=== PATIENT | female | born 1985 | race Caucasian/White ===

== ENCOUNTER 2024-08-31 12:47 | Observation (INO) | payer OTHER, SELFPAY ==
[2024-08-31] VITALS (7 sets, daily range): BP systolic 99–151; BP diastolic 67–96; PULSE 58–72; RESP 14–18; TEMP 36.6–37.2; O2SAT 95–99; BMI 30.5; BMI 36.8
[2024-08-31 13:44] LABS: Basophils % 0.4 %; Eosinophils # 0.1 10^3/uL (0.0-0.8); Eosinophils % 0.7 %; Hematocrit 40.9 % (36-47); Lymphocytes # 1.8 10^3/uL (0.8-4.8); Lymphocytes % 19.9 %; Mean Corpuscular Hemoglobin 30.7 pg (27-33); Mean Platelet Volume 10.2 fL (7.4-10.4); Monocytes # 0.7 10^3/uL (0.2-0.9); Monocytes % 7.3 %; Neutrophils # 6.49 10^3/uL (1.8-7.7); Neutrophils % 71.5 %; Nucleated Red Blood Cells % 0 %; Platelet Count 264 10^3/cmm (157-399); Red Cell Distribution Width 11.8 % (12.1-15.1); White Blood Count 9.08 10^3/uL (3.29-11.43)
[2024-08-31 13:58] LABS: HCG, Serum Qual Negative (Negative)
[2024-08-31 14:04] LABS: Alanine Aminotransferase 7 U/L (0-33); Alkaline Phosphatase 100 U/L (35-105); Anion Gap 14.7 (5-19); Aspartate Amino Transferase 14 U/L (0-32); Blood Urea Nitrogen 11 mg/dL (6-20); Calcium 8.9 mg/dL (8.5-10.5); Carbon Dioxide 23 mmol/L (22-29); Chloride 101 mmol/L (98-107); Globulin 3.5 g/dL (1.3-4.6); Glomerular Filtration Rate 111.9 mL/min (90-130); Glucose 87 mg/dL (65-115); Lipase 20 U/L (13-60); Osmolality Calculated 279 mOsm/kg (285-295); Potassium 3.7 mmol/L (3.5-5.1); Sodium 135 mmol/L (136-145); Total Bilirubin 0.4 mg/dL (0.15-1.2); Total Protein 7.5 g/dL (6.6-8.7)
[2024-08-31 14:32] LABS: Bilirubin Urine Negative (Negative); Blood Urine 2+ (Negative); Glucose Urine UA Negative (Normal); Ketones Urine Trace (Negative); Leukocyte Esterase Urine Negative (Negative); Nitrate Urine Negative (Negative); Protein Urine Trace (Negative); Urine Appearance Clear (CLEAR); Urine Color Yellow (Yellow)
[2024-08-31 14:37] LABS: Add Urine Microscopic? YES; Bacteria Urine Trace /hpf; RBC Urine 21-50 /hpf (0-2); Squamous Epithelial Cell Urine 0-5 /hpf (0-5)
[2024-08-31 14:41] LABS: Add Urine Culture? Yes
--- NOTE | 2024-08-31 14:42 | W.ED.ABDPA2 ---
HPI - Abdominal Pain General: Chief Complaint: Abdominal Pain Stated Complaint: upper abd pain with back pain, n/v/f Time Seen by Provider: 08/31/24 13:56 Source: patient Mode of arrival: ambulatory Limitations: no limitations History of Present Illness: 38-year-old female presents to the ER complaining of abdominal pain. Patient states she has been having intermittent abdominal pain for the past 3 weeks and states this past week it has increased and it is been constant and severe x 1-2 days. She describes the pain as sharp, stabbing, achy and rates it at a 9 out of 10 and located to her RUQ. She states the pain does radiate to the right back. Patient reports she had a subjective fever last night and had taken Tylenol. She reports one episode of non-bloody, non-bilious vomit this morning. She states with abdominal pain she has had increased belching occurring with it. Her pain worsens when she lies flat and it is relieved when she sits up or sleeps in a recliner. Does sometimes feel like pain is worse with eating-other times it seems unaffected. Patient denies chest pain, shortness of breath, palpitations, diarrhea, constipation, headache. MD elicited complaint: abdominal pain Onset (ago): week(s) Pain Consistency: constant (1-2 days) and intermittent Location: RUQ Severity: moderate Pain scale (0-10): 9 Quality: stabbing, aching and sharp Radiation: back (R. lower back) Migration to: no migration Exacerbating factors: eating and other (lying flat) Relieving factors: other (sitting up or in recliner) Associated Symptoms: Reports belching, dyspepsia, fever(s) (subjective), heartburn, nausea and vomiting; Denies change in bowel habits, chills, constipation, diarrhea, dysuria, excessive flatus, hematochezia, hematuria, hematemesis and melena Related Data Date of Last Menstrual Period: 08/22/24 Home Medications ?Medication ?Instructions ?Recorded ?Confirmed desogestrel 0.15 mg-ethinyl 1 tab PO DAILY 08/31/24 08/31/24 estradiol 0.03 mg tablet (Enskyce) Allergies Allergy/AdvReac Type Severity Reaction Status Date / Time No Known Allergies Allergy Verified 08/31/24 13:35 Review of Systems Const: Reports: fever(s) (subjective); Denies: chills, body aches, change in appetite or change in weight Card: Denies: chest pain, palpitations or lightheadedness Resp: Denies: dyspnea, productive cough or non-productive cough GI: Reports: abdominal pain, nausea, vomiting, heartburn and belching; Denies: hematemesis, dysphagia, diarrhea, constipation, excessive flatus, change in bowel habits, hematochezia or melena : Denies: flank pain, difficulty voiding, dysuria, urinary frequency, urinary urgency, urinary hesitancy or hematuria Musc: Reports: back pain (R. lower back pain ); Denies: neck pain, extremity pain, extremity swelling, joint pain, joint swelling, joint redness, joint warmth or joint stiffness Skin/Breast: Denies: rash Neuro: Denies: headache(s), numbness in extremities, weakness in extremities or sensory changes [facility] ED Female Reproductive History: Date of last menstrual period: 08/22/24 Physical Exam Const: COMMON NORMALS: no acute distress, average body habitus, patient oriented x3, no limitations, healthy appearing, alert and well nourished GENERAL APPEARANCE: cooperative ORIENTATION/CONSCIOUSNESS: Yes awake, Yes oriented to person, Yes oriented to place and Yes oriented to time Neck/C-Spine: COMMON NORMALS: no JVD Resp: COMMON NORMALS: normal respiratory effort and clear to auscultation bilaterally EFFORT & INSPECTION: Yes able to speak in complete sentences AUSCULTATION: clear to auscultation bilaterally Cardio: COMMON NORMALS: no JVD, regular rate and regular rhythm RATE: regular rate RHYTHM: regular rhythm GI: COMMON NORMALS: Normal to inspection, nondistended, normoactive bowel sounds present AUSCULTATION: Yes normoactive bowel sounds PALPATION: Yes Tenderness to palpation present (GI) (tender in RUQ and RLQ) Details: RUQ ((+) Harvey sign ) : COMMON NORMALS: Yes no CVA tenderness BLADDER/KIDNEY EXAM: Yes no CVA tenderness Back/Pelvis: COMMON NORMALS: no CVA tenderness Neuro: COMMON NORMALS: patient oriented x3 SENSORIUM/ORIENTATION: Yes alert, Yes oriented to person, Yes oriented to place and Yes oriented to time Course Consultations: Consultation #1: Dr. Dias-will accept admission Vital Signs: Vital signs: Vital Signs Temperature 97.9 F 08/31/24 13:32 Pulse Rate 59 L 08/31/24 16:34 Respiratory Rate 16 08/31/24 16:34 Blood Pressure 134/89 08/31/24 16:34 Pulse Oximetry 96 08/31/24 16:34 Oxygen Delivery Me thod Room Air 08/31/24 16:34 MDM - Abdominal Pain Medical Decision Making Patient is a nice 38-year-old female here for right upper quadrant pain over the past 3 weeks progressively worsening. Vital signs are stable. Her blood work is unremarkable. Ultrasound imaging showing cholelithiasis with gallbladder wall thickening and a positive Harvey's compatible with early acute cholecystitis. Borderline dilatation of her CBD. Again she has a normal t. bili and a normal lipase. Spoke to Dr. Day who will admit with plan for cholecystectomy tomorrow. Medical Records I reviewed the patient's medical records. Lab Data I reviewed the patient's lab results. 08/31/24 13:12 08/31/24 13:12 Labs/Radiology: Radiology Impressions Gallbladder Ultrasound 08/31/24 15:09 IMPRESSION: 1. Cholelithiasis with gallbladder wall thickening and positive sonographic Harvey's sign compatible with early acute cholecystitis in the proper clinical setting. 2. Borderline dilatation of the CBD to 7 mm. Laboratory Results WBC 9.08 10^3/uL (3.29-11.43) 08/31/24 13:12 RBC 4.40 10^6/uL (3.85-5.65) 08/31/24 13:12 Hgb 13.50 g/dL (11.27-16.99) 08/31/24 13:12 Hct 40.9 % (36-47) 08/31/24 13:12 MCV 93.0 fl (85-98) 08/31/24 13:12 MCH 30.7 pg (27-33) 08/31/24 13:12 MCHC 33.0 g/dL (30-55) 08/31/24 13:12 RDW 11.8 % (12.1-15.1) L 08/31/24 13:12 Plt Count 264 10^3/cmm (157-399) 08/31/24 13:12 MPV 10.2 fL (7.4-10.4) 08/31/24 13:12 Neut % (Auto) 71.5 % 08/31/24 13:12 Lymph % (Auto) 19.9 % 08/31/24 13:12 Porter % (Auto) 7.3 % 08/31/24 13:12 Eos % (Auto) 0.7 % 08/31/24 13:12 Baso % (Auto) 0.4 % 08/31/24 13:12 Neut # (Auto) 6.49 10^3/uL (1.8-7.7) 08/31/24 13:12 Lymph # (Auto) 1.8 10^3/uL (0.8-4.8) 08/31/24 13:12 [place] # (Auto) 0.7 10^3/uL (0.2-0.9) 08/31/24 13:12 Eos # (Auto) 0.1 10^3/uL (0.0-0.8) 08/31/24 13:12 Baso # (Auto) 0.0 10^3/uL (0.0-0.1) 08/31/24 13:12 Nucleated RBC % (auto) 0 % 08/31/24 13:12 Nucleated RBCs # 0.0 /100WBC 08/31/24 13:12 Sodium 135 mmol/L (136-145) L 08/31/24 13:12 Potassium 3.7 mmol/L (3.5-5.1) 08/31/24 13:12 Chloride 101 mmol/L (98-107) 08/31/24 13:12 Carbon Dioxide 23 mmol/L (22-29) 08/31/24 13:12 Anion Gap 14.7 (5-19) 08/31/24 13:12 BUN 11 mg/dL (6-20) 08/31/24 13:12 Creatinine 0.6 mg/dL (0.5-0.9) 08/31/24 13:12 GFR Calculation 111.9 mL/min (90-130) 08/31/24 13:12 Glucose 87 mg/dL (65-115) 08/31/24 13:12 Calculated Osmolality 279 mOsm/kg (285-295) L 08/31/24 13:12 Calcium 8.9 mg/dL (8.5-10.5) 08/31/24 13:12 Total Bilirubin 0.4 mg/dL (0.15-1.2) 08/31/24 13:12 AST 14 U/L (0-32) 08/31/24 13:12 ALT 7 U/L (0-33) 08/31/24 13:12 Alkaline Phosphatase 100 U/L (35-105) 08/31/24 13:12 Total Protein 7.5 g/dL (6.6-8.7) 08/31/24 13:12 Albumin 4.0 g/dL (3.5-5.2) 08/31/24 13:12 Globulin 3.5 g/dL (1.3-4.6) 08/31/24 13:12 Lipase 20 U/L (13-60) 08/31/24 13:12 HCG, Qual Negative (Negative) 08/31/24 13:12 Urine Color Yellow (Yellow) 08/31/24 13:45 Urine Appearance Clear (CLEAR) 08/31/24 13:45 Urine pH 6.0 (5-7) 08/31/24 13:45 Ur Specific [place] 1.030 (1.005-1.030) 08/31/24 13:45 Urine Protein Trace (Negative) A 08/31/24 13:45 Urine Glucose (UA) Negative (Normal) 08/31/24 13:45 Urine Ketones Trace (Negative) 08/31/24 13:45 Urine Blood 2+ (Negative) A 08/31/24 13:45 Urine Nitrate Negative (Negative) 08/31/24 13:45 Urine Bilirubin Negative (Negative) 08/31/24 13:45 Urine Urobilinogen 1.0 mg/dL (Negative) 08/31/24 13:45 Ur Leukocyte Esterase Negative (Negative) 08/31/24 13:45 Urine RBC 21-50 /hpf (0-2) H 08/31/24 13:45 Urine WBC 6-10 /hpf (0-5) 08/31/24 13:45 Ur Squamous Epith Cells 0-5 /hpf (0-5) 08/31/24 13:45 Amorphous Sediment Not Reportable 08/31/24 13:45 Urine Bacteria Trace /hpf (NONE) 08/31/24 13:45 Hyaline Casts 3.30 /lpf 08/31/24 13:45 All radiology interpretation(s) finalized by discharge Discharge Plan Discharge Patient Disposition: Admitted As Inpatient Clinical Impression: Acute calculous cholecystitis Condition: Stable Prescriptions: No Action desogestrel-ethinyl estradiol [Enskyce] 0.15-0.03 mg tablet 1 tab PO DAILY Print Language: Ukrainian Coding Level of Care Code ED Material Control Supervisor for Antony Kessler
--- NOTE | 2024-08-31 15:09 | USR_ITS ---
PROCEDURE INFORMATION: Exam: US Abdomen, Limited; Right Upper Quadrant Exam date and time: 08/31/2024 3:45 PM Age: 38 years old Clinical indication: Abdominal pain; Localized; Right upper quadrant (ruq); Additional info: Ruq abdominal pain, n/v TECHNIQUE: Imaging protocol: Real time ultrasound of the abdomen with image documentation. Limited exam focused on the right upper quadrant. COMPARISON: No relevant prior studies available. FINDINGS: Liver: Visualized hepatic parenchyma is unremarkable. The liver contour is grossly smooth. Gallbladder: There is cholelithiasis with gallbladder wall thickening to 5 mm. The director of compensation reports a positive sonographic Harvey's sign. Biliary ducts: The CBD is borderline dilated, measuring 7 mm. No sonographic evidence of intraductal stone. Pancreas: The pancreas is partially obscured bowel gas. Visualized portions are grossly unremarkable. Right kidney: The right kidney is normal in echotexture and measures 10.1 cm in length. No evidence of hydronephrosis. US/US gall bladder [id number] IMPRESSION: 1. Cholelithiasis with gallbladder wall thickening and positive sonographic Harvey's sign compatible with early acute cholecystitis in the proper clinical setting. 2. Borderline dilatation of the CBD to 7 mm.
[2024-08-31] MEDS: morphine 4 mg/mL SDV 1 mL IVP ×2 (15:32→19:21)
[2024-08-31] MEDS: ondansetron 2 mg/ML SDV 2 mL 4 MG IVP (15:32)
[2024-08-31] MEDS: lidocaine 2% viscous 15 ML, aluminum-mag hydrox-simethicon 30 ML, sucralfate oral liq 1 GM PO (15:32)
--- NOTE | 2024-08-31 17:12 | PM.HP ---
Providers/Chief Complaint Chief Complaint: upper abd pain with back pain, n/v/f History of Present Illness Shwetha Briceno is a 38 year old female who presents with early acute cholecystitis. Patient reports RUQ pain. Imaging in ED demonstrated gallstones. Medications/Allergies Home Medications ?Medication ?Instructions ?Recorded ?Confirmed ?Last Taken ?Type desogestrel 0.15 mg-ethinyl 1 tab PO DAILY 08/31/24 08/31/24 08/31/24 History estradiol 0.03 mg tablet (Enskyce) Allergies Allergy/AdvReac Type Severity Reaction Status Date / Time No Known Allergies Allergy Verified 08/31/24 13:35 PFSH Acute Female Reproductive History: Date of last menstrual period: 08/22/24 Vitals/I&O/Wt Last Vital Signs Temp 97.9 F 08/31/24 13:32 Pulse 59 L 08/31/24 16:34 Resp 16 08/31/24 16:34 BP 134/89 08/31/24 16:34 Pulse Ox 96 08/31/24 16:34 O2 Del Method Room Air 08/31/24 16:34 Weight last 48 hrs Weight 175 lb Physical Exam Narrative: RRR Unlabored breathing RA Abdomen soft, TTP RUQ, non distended Data 08/31/24 13:12 08/31/24 13:12 A&P Assessment and plan (1) Acute calculous cholecystitis: Plan 38yo female who presented with acute cholecystitis. Discussed risks and benefits and patient agreed to proceed with lap johnny possible open. PDMP PDMP Reviewed: Not Reviewed Attestations Medical Necessity Statement*: IV abx Coding Level of Care Code 41842 Diagnoses Acute calculous cholecystitis K80.00 Time Spent (min) 30
[2024-08-31] MEDS: sodium chloride 0.9% 1,000 ML 100 ML IV ×2 (17:34→23:50)
[2024-08-31] MEDS: piperacillin-tazobactam 3.375 GM in sodium chloride 0.9% (plus) 50 ML IV ×2 (17:34→23:50)
[2024-09-01] VITALS (15 sets, daily range): BP systolic 118–135; BP diastolic 73–84; PULSE 60–80; RESP 14–20; TEMP 36.4–37.3; O2SAT 92–98
[2024-09-01] MEDS: morphine 4 mg/mL SDV 1 mL IVP (01:37)
[2024-09-01] MEDS: piperacillin-tazobactam 3.375 GM in sodium chloride 0.9% (plus) 50 ML IV (06:32)
[2024-09-01] MEDS: acetaminophen 325 mg Tablet 650 MG PO (07:51)
--- NOTE | 2024-09-01 09:29 | PC.CHAP ---
Pastoral Care Encounter/Spiritual Assessment Type of Contact [] Declined pulpwood buyer visit [] Patient/Family/Request visit [] Outpatient visit [] Follow-up visit [] Physician referral [] Code/Alert [x] Routine visit [] Staff referral [] Actively dying [] Patient sleeping [] Family support [] [] Out of room [] Palliative care [] [] Receiving care in room [] Pre-surgical visit [] Trauma [] Long length of stay [] ICU visit [] Other: Relational/Emotional Strength [x] Patient feels connected with others/family/visitors/staff [] Distress [] Loneliness/isolation [] Abandonment Spirituality of Patient [x] Person of Antionette [] Attends Catholic of their Antionette [x] Believes in Prayer [] Reads Bible or Rastafari materials [] There are Spiritual issues to be addressed Tape Deck Installer Interventions [x] Prayer [x] Active listening [] Non-anxious presence [x] Spiritual/emotional support [] Crisis/trauma care [] Spiritual counseling [] Bereavement support [] Provided bereavement packet [] Provided Bible/devotional materials [] Provided toy/stuffed animal, coloring book to patient or family member [] Provided Communion [] Anointing/[place] [] Salvation [x] Completed spiritual assessment [] Other: Impact on Illness or Injury [] Angry [] Fearful [] Anxious [] Often cries [] Exhaustion [] Unable to work [] Unable to attend caodaism [] Unable to walk/stand [] Unable to read [] Unable to drive [] Unable to eat/drink [] Unable to sleep [] Unable to be with family [] Patient intubated [] Other: Summary Time spent with patient 5 min
--- NOTE | 2024-09-01 11:46 | ANES.PREANE2 ---
Pre-Anesthetic Assessment Height/Weight: Height 1.6 m Weight 93.531 kg Temp Pulse Resp BP Pulse Ox O2 Del Method 98.5 F 75 17 122/79 96 Room Air 09/01/24 11:40 09/01/24 11:40 09/01/24 11:40 09/01/24 11:40 09/01/24 11:40 09/01/24 11:40 Operation Date: 09/01/24 12:50 Proposed Procedures p Laparoscopic Cholecystectomy(Not Applicable) - Norman Day MD Familial anesthetic complications: None Was Beta Reynold taken within 24 hours: N/A Was Clonidine taken within 24 hours: N/A Last intake: Intake Last Liquid Date 09/01/24 Last Liquid Time 00:00 Last Solid Date 08/31/24 Last Solid Time 07:00 Social No alcohol and No tobacco Exam alert, oriented x 3, clear to auscultation bilaterally and regular rate & rhythm Airway Mallampati: Class III Dentition: partials Metabolic Morbid Obesity Anesthetic Plan ASA status: 2 Anesthesia: General Risk of > 500 ml blood loss (7ml/kg in children): No Medications/Allergies Home Medications ?Medication ?Instructions ?Recorded ?Confirmed ?Last Taken ?Type desogestrel 0.15 mg-ethinyl 1 tab PO DAILY 08/31/24 08/31/24 08/31/24 History estradiol 0.03 mg tablet (Enskyce) Allergies Allergy/AdvReac Type Severity Reaction Status Date / Time No Known Allergies Allergy Verified 08/31/24 13:35 Current Medications Generic Name Dose Route Start Last Admin Trade Name Freq PRN Reason Stop Dose Admin Acetaminophen 650 mg 09/01/24 07:06 09/01/24 07:51 Acetaminophen 325 Mg Tablet PO 650 mg Q6H PRN Administration MILD PAIN Sodium Chloride 1,000 mls @ 100 mls/hr 08/31/24 17:15 08/31/24 23:50 Sodium Chloride 0.9% IV 100 mls/hr .Q10H TC Administration Piperacillin Sod/Tazobactam 50 mls @ 12.5 mls/hr 08/31/24 23:30 09/01/24 11:05 Sod 3.375 gm/ Sodium Chloride IV Infused Q8H TC Infusion Morphine Sulfate 4 mg 08/31/24 17:06 09/01/24 01:37 Morphine 4 Mg/Ml Sdv 1 Ml IVP 4 mg Q4H PRN Administration SEVERE PAIN PFSH Anesthesia Female Reproductive History Date of last menstrual period: 08/22/24 Data Anesthesia 08/31/24 13:12 08/31/24 13:12 Short CBC 08/31/24 Range/Units 13:12 WBC 9.08 (3.29-11.43) 10^3/uL Hgb 13.50 (11.27-16.99) g/dL Hct 40.9 (36-47) % MCV 93.0 (85-98) fl Plt Count 264 (157-399) 10^3/cmm Neut % (Auto) 71.5 % Neut # (Auto) 6.49 (1.8-7.7) 10^3/uL BMP 08/31/24 13:12 Sodium 135 L Potassium 3.7 Chloride 101 Carbon Dioxide 23 BUN 11 Creatinine 0.6 Glucose 87 Calcium 8.9 Liver Function 08/31/24 Range/Units 13:12 Total Bilirubin 0.4 (0.15-1.2) mg/dL AST 14 (0-32) U/L ALT 7 (0-33) U/L Alkaline Phosphatase 100 (35-105) U/L Albumin 4.0 (3.5-5.2) g/dL Urine 08/31/24 Range/Units 13:45 Urine Color Yellow (Yellow) Urine Appearance Clear (CLEAR) Urine pH 6.0 (5-7) Ur Specific [place] 1.030 (1.005-1.030) Urine Protein Trace A (Negative) Urine Glucose (UA) Negative (Normal) Urine Ketones Trace (Negative) Urine Nitrate Negative (Negative) Urine Bilirubin Negative (Negative) Ur Leukocyte Esterase Negative (Negative) Urine RBC 21-50 H (0-2) /hpf Urine WBC 6-10 (0-5) /hpf Microbiology 08/31/24 18:45 Blood Culture - Preliminary Blood SPECIMEN COLLECTED 08/31/24 18:59 Blood Culture - Preliminary Blood SPECIMEN COLLECTED Cardiac Studies: No Data to Display
--- NOTE | 2024-09-01 12:16 | P.PN_ITS ---
Subjective 2 Subjective: RUQ pain Vitals/I&O/Wt Last Vital Signs Temp 98.2 F 09/01/24 11:52 Pulse 72 09/01/24 11:52 Resp 16 09/01/24 11:52 BP 130/84 09/01/24 11:52 Pulse Ox 97 09/01/24 11:52 O2 Del Method Room Air 09/01/24 11:52 08/31/24 09/01/24 09/01/24 22:59 06:59 14:59 Intake Total 533 / 533 50 / 583 50 / 50 Output Total 600 / 600 Balance 533 / 533 -550 / -17 50 / 50 Weight last 48 hrs Weight 206 lb 3.2 oz Weight 207 lb 9.6 oz Weight 175 lb Physical Exam 2 Narrative: RRR Unlabored breathing RA Abdomen soft, TTP RUQ Data 08/31/24 13:12 08/31/24 13:12 Micro: Microbiology 08/31/24 18:45 Blood Culture - Preliminary Blood SPECIMEN COLLECTED 08/31/24 18:59 Blood Culture - Preliminary Blood SPECIMEN COLLECTED A&P Assessment and plan (1) Acute calculous cholecystitis: 38yo female with acute cholecystitis. OR today. Risks and benefits discussed. PDMP PDMP Reviewed: Not Reviewed Attestations 2 Medical Necessity Statement*: IV abx Coding Level of Care Code 95263 Diagnoses Acute calculous cholecystitis K80.00
[2024-09-01] MEDS: lidocaine-epi 1% 20 mL INJ INJECTION (12:39)
--- NOTE | 2024-09-01 13:38 | PM.OP ---
Operative Report Date of procedure: September 01, 2024 Pre-op diagnosis: Acute cholecystitis Post-op diagnosis: same Post-op findings: Acute cholecystitis Procedure done: Laparoscopic cholecystectomy Implants: N/A Specimens removed/disposition: Gallbladder sent to pathology Pathology: Gallbladder sent to pathology Surgeon: Norman Day MD Diving Supervisor: N/A Anesthesia: General Estimated blood loss (mL): 10 Complications: N/A Findings: Inflamed gallbladder filled with stones. Condition: stable Brief History: 38-year-old female who presented with acute cholecystitis. Discussed risk and benefits and patient agreed to proceed with laparoscopic cholecystectomy possible open. Procedure: I discussed the risks and benefits of laparoscopic cholecystectomy, and obtained consent prior to proceeding to the operating room. SCDs were utilized. Prophylactic antibiotics were administered. General anesthesia was induced. The patient was placed supine, and she was prepped and draped in the usual sterile fashion. Insufflation to 15mmHg was achieved using a Veress needle at Mcgee's point. A 12mm optiview trocar was placed at the umbilicus under direct visualization. The left upper quadrant was inspected, and no injuries were noted. Two 5mm ports were placed in the right upper quadrant, and a 12mm working port was placed in the epigastrium. The gallbladder was then retracted cephalad through the lateral RUQ port, and the infundibulum grabbed through the medial RUQ port and retracted laterally. The gallbladder was inflammed and thus consistent with her diagnosis of cholecystitis. I proceeded to score the peritoneum over the medial aspect of the gallbladder using a laparoscopic hook with electrocautery. Then the infundibulum was retracted medially in order to score the peritoneum over the lateral aspect of the galbladder. Using a combination of energy and blunt dissection with the [place] and a Kittner dissector, the cystic artery and cystic duct were dissected. I then proceeded to dissect the cystic plate in order to to achieve the critical view of safety. The cystic artery and the cystic duct were clipped three times (leaving two clips on the proximal end of both structures). I then proceeded to dissect the gallbladder off the liver using hook electrocautery. The specimen was placed in an endocatch bag and retrieved from the abdomen through the port on the epigastrium. I then irrigated the gallbladder fossa with 1L of NS to confirm adequate hemostasis and the absence of any bile leaks. The gallbladder fossa was then cauterized again. Prior to ending the laparoscopic portion, I examined the rest of the abdomen and did not find any abnormalities or injuries. The abdomen was then desufflated, and the 12mm port in the epigastrium and umbilicus was closed using 0 vicryl on a UR needle after irrigating copiously. Skin was closed using 4-0 monocryl and surgical glue. The patient woke up from anesthesia and transferred to PACU without any complications.
--- NOTE | 2024-09-01 14:30 | ANE.PACU2 ---
Inpatient post-anesthesia follow up: Airway intact: Yes Vital signs: Temperature 97.6 F Pulse Rate 80 Respiratory Rate 14 Blood Pressure 130/77 Pulse Oximetry 94 Oxygen Delivery Me thod Room Air Oxygen Flow Rate 8 Fraction of Inspir ed Oxygen Hydration adequate: Yes Nausea and vomiting: No Pain level: 1 Mental status: Baseline
[2024-09-01] MEDS: oxyCODONE 5 mg IR Tab/Cap PO (15:07)
--- NOTE | 2024-09-03 15:10 | PM.DCS ---
Discharge Providers Date of Admission: 08/31/24 17:51 Date of Discharge: September 03, 2024 Attending Provider at Admission: Norman Day MD Attending Provider at Discharge: Norman Day MD Diagnoses at Discharge Discharge Diagnosis (1) Acute calculous cholecystitis: Status: Resolved Reason for Visit Reason for Visit: upper abd pain with back pain, n/v/f Hospital Course Hospital Course 38yo female who presented with acute cholecystitis. Performed lap johnny. Tolerated PO. Pain controlled. Cleared for discharge. Physical Exam Narrative: RRR Unlabored breathing RA Abdomen soft, nt, nd Discharge Data Studies Completed and Pending Completed Studies During Hospitalization Category Date Time Status US gall bladder [id number] Stat Ultrasound 08/31/24 15:09 Completed Pending at discharge Category Date Time Status Blood Culture Stat Lab 08/31/24 18:45 Results Pathology: Surgical [PTH] Routine Pth 09/01/24 13:44 Received Radiology Impressions Gallbladder Ultrasound 08/31/24 15:09 IMPRESSION: 1. Cholelithiasis with gallbladder wall thickening and positive sonographic Harvey's sign compatible with early acute cholecystitis in the proper clinical setting. 2. Borderline dilatation of the CBD to 7 mm. Laboratory Results WBC 9.08 10^3/uL (3.29-11.43) 08/31/24 13:12 RBC 4.40 10^6/uL (3.85-5.65) 08/31/24 13:12 Hgb 13.50 g/dL (11.27-16.99) 08/31/24 13:12 Hct 40.9 % (36-47) 08/31/24 13:12 MCV 93.0 fl (85-98) 08/31/24 13:12 MCH 30.7 pg (27-33) 08/31/24 13:12 MCHC 33.0 g/dL (30-55) 08/31/24 13:12 RDW 11.8 % (12.1-15.1) L 08/31/24 13:12 Plt Count 264 10^3/cmm (157-399) 08/31/24 13:12 MPV 10.2 fL (7.4-10.4) 08/31/24 13:12 Neut % (Auto) 71.5 % 08/31/24 13:12 Lymph % (Auto) 19.9 % 08/31/24 13:12 Brule % (Auto) 7.3 % 08/31/24 13:12 Eos % (Auto) 0.7 % 08/31/24 13:12 Baso % (Auto) 0.4 % 08/31/24 13:12 Neut # (Auto) 6.49 10^3/uL (1.8-7.7) 08/31/24 13:12 Lymph # (Auto) 1.8 10^3/uL (0.8-4.8) 08/31/24 13:12 [place]le # (Auto) 0.7 10^3/uL (0.2-0.9) 08/31/24 13:12 Eos # (Auto) 0.1 10^3/uL (0.0-0.8) 08/31/24 13:12 Baso # (Auto) 0.0 10^3/uL (0.0-0.1) 08/31/24 13:12 Nucleated RBC % (auto) 0 % 08/31/24 13:12 Nucleated RBCs # 0.0 /100WBC 08/31/24 13:12 Sodium 135 mmol/L (136-145) L 08/31/24 13:12 Potassium 3.7 mmol/L (3.5-5.1) 08/31/24 13:12 Chloride 101 mmol/L (98-107) 08/31/24 13:12 Carbon Dioxide 23 mmol/L (22-29) 08/31/24 13:12 Anion Gap 14.7 (5-19) 08/31/24 13:12 BUN 11 mg/dL (6-20) 08/31/24 13:12 Creatinine 0.6 mg/dL (0.5-0.9) 08/31/24 13:12 GFR Calculation 111.9 mL/min (90-130) 08/31/24 13:12 Glucose 87 mg/dL (65-115) 08/31/24 13:12 Calculated Osmolality 279 mOsm/kg (285-295) L 08/31/24 13:12 Calcium 8.9 mg/dL (8.5-10.5) 08/31/24 13:12 Total Bilirubin 0.4 mg/dL (0.15-1.2) 08/31/24 13:12 AST 14 U/L (0-32) 08/31/24 13:12 ALT 7 U/L (0-33) 08/31/24 13:12 Alkaline Phosphatase 100 U/L (35-105) 08/31/24 13:12 Total Protein 7.5 g/dL (6.6-8.7) 08/31/24 13:12 Albumin 4.0 g/dL (3.5-5.2) 08/31/24 13:12 Globulin 3.5 g/dL (1.3-4.6) 08/31/24 13:12 Lipase 20 U/L (13-60) 08/31/24 13:12 HCG, Qual Negative (Negative) 08/31/24 13:12 Urine Color Yellow (Yellow) 08/31/24 13:45 Urine Appearance Clear (CLEAR) 08/31/24 13:45 Urine pH 6.0 (5-7) 08/31/24 13:45 Ur Specific [place] 1.030 (1.005-1.030) 08/31/24 13:45 Urine Protein Trace (Negative) A 08/31/24 13:45 Urine Glucose (UA) Negative (Normal) 08/31/24 13:45 Urine Ketones Trace (Negative) 08/31/24 13:45 Urine Blood 2+ (Negative) A 08/31/24 13:45 Urine Nitrate Negative (Negative) 08/31/24 13:45 Urine Bilirubin Negative (Negative) 08/31/24 13:45 Urine Urobilinogen 1.0 mg/dL (Negative) 08/31/24 13:45 Ur Leukocyte Esterase Negative (Negative) 08/31/24 13:45 Urine RBC 21-50 /hpf (0-2) H 08/31/24 13:45 Urine WBC 6-10 /hpf (0-5) 08/31/24 13:45 Ur Squamous Epith Cells 0-5 /hpf (0-5) 08/31/24 13:45 Amorphous Sediment Not Reportable 08/31/24 13:45 Urine Bacteria Trace /hpf (NONE) 08/31/24 13:45 Hyaline Casts 3.30 /lpf 08/31/24 13:45 Vitals Last Vital Signs Temp 97.6 F 09/01/24 16:13 Pulse 80 09/01/24 16:13 Resp 14 09/01/24 16:13 BP 130/77 09/01/24 16:13 Pulse Ox 94 09/01/24 16:13 O2 Del Method Room Air 09/01/24 15:18 O2 Flow Rate 8 09/01/24 14:06 Discharge Plan Discharge Patient Disposition: Home Condition: Stable Prescriptions: New oxycodone 5 mg tablet 5 mg PO Q6H PRN (Reason: pain) 5 Days Qty: 10 0RF Continued desogestrel-ethinyl estradiol [Enskyce] 0.15-0.03 mg tablet 1 tab PO DAILY Discharge Orders: Discharge Order (Routine); Ordered 09/01/24 Ordered By: Norman Day Referrals: Norman Day MD [Physician] - 09/14/24 8:35 am Vesna Youssef NP [Referring] - 09/07/24 2:30 pm () Patient Instructions: Oxycodone, Rapid Release (By mouth), Acute Wound Care (DC), Laparoscopic Cholecystectomy (GEN), Opioid Safety, Post Anesthesia Care Discharge Attestations Time Spent in Discharge Care*: greater than 30 min Quality Metrics Clinical Quality Measures [ No reported AMI, CVA or VTE this stay] Coding Level of Care Code Acute Code for Chg Fwd Diagnoses Acute calculous cholecystitis K80.00
== END 2024-09-01 16:14 | disposition home or self-care (01) ==
LOC: ER 17:11 → ER IP 17:51 → MEDSURG 18:45
PROVIDERS: Emergency Medicine; Admitting Provider Student in an Organized Health Care Education/Training Program; Emergency Provider Physician Assistant; Visit Provider Student in an Organized Health Care Education/Training Program
PROC: 0FT44ZZ Resection of Gallbladder, Percutaneous Endoscopic Approach (ICD-10-PCS; CPT 47562; principal; 2024-09-01 12:40)
DX: K80.10 Calculus of gallbladder with chronic cholecystitis without obstruction (principal); E66.01 Morbid (severe) obesity due to excess calories; Z68.36 Body mass index [BMI] 36.0-36.9, adult
CPT/HCPCS: 47562; 36415; 76705; 80053; 81001; 83690; 84703; 85025; 87040; 87086; 88304; 96365; 96366; 96375; 96376; 99285; G0378; J0131; J0330; J1100; J1200; J1885; J2250; J2270; J2405; J2543; J2704; J2710; J3010; J3490; J7030